=== PATIENT | male | born 1945 ===

== ENCOUNTER 2017-09-26 05:12 | Outpatient (CLI) | payer MEDICARE | END 2017-09-26 23:59 | disposition home or self-care (01) | LOC: DIABETIC 05:12 | PROVIDERS: ATTEND Internal Medicine Interventional Cardiology | DX: E11.9 Type 2 diabetes mellitus without complications (principal); E78.5 Hyperlipidemia, unspecified; I10 Essential (primary) hypertension | CPT/HCPCS: G0108 ==